=== PATIENT | male | born 1965 ===

== ENCOUNTER 2020-04-10 18:21 | Outpatient (REF) | payer OTHER, SELFPAY ==
[2020-04-14 05:56] LABS: SARS-CoV-2 RNA Undetected (Undetected); SARS-CoV-2 Specimen Source Nasopharynx
== END 2020-04-10 18:41 ==
LOC: NCHCN 18:21
PROVIDERS: PCP Nurse Practitioner Family; Visit Provider Nurse Practitioner Family
DX: Z20.828 Contact with and (suspected) exposure to other viral communicable diseases (principal)
CPT/HCPCS: U0003